=== PATIENT | female | born 1970 | race Two or more races ===

== ENCOUNTER 2023-06-20 22:42 | Inpatient (IN) | payer BC, OTHER ==
[~2023-06-20] VITALS: Ht 162.6 cm; Wt 124.6 kg
[2023-06-20] MEDS ORDERED: SODIUM CHLORIDE 0.9% 1,000 ML IV ONE (23:00)
[2023-06-20] MEDS ORDERED: METOCLOPRAMIDE HCL 5MG/ml INJ 2ml VIAL IV ONE (23:00)
[2023-06-20] MEDS ORDERED: MORPHINE SULFATE 4 MG/ML SYR/VIAL IV ONE (23:00)
[2023-06-20] MEDS ORDERED: PIPERACILLIN-TAZOB 3.375GM 100 ML IV ONE (23:45)
[2023-06-21] VITALS (8 sets, daily range): BP systolic 103–148; BP diastolic 67–78; PULSE 78–98; RESP 16–19; TEMP 96.8–98.6; O2SAT 94–99
[2023-06-21] MEDS ORDERED: ACETAMINOPHEN 325 MG TAB PO PRN
[2023-06-21] MEDS ORDERED: HYDROcodone-ACET 5/325MG TAB PO PRN
[2023-06-21 06:17] LABS: Urine Bacteria NONE SEEN /hpf (None Seen); Urine Blood Negative /uL (Negative); Urine Clarity Clear (Clear); Urine Color Yellow (Yellow); Urine Mucus FEW (None Seen); Urine Protein, UAD Negative (Negative); Urine Specific Gravity 1.019 (1.001-1.035); Urine Urobilinogen Normal (Negative); Urine WBC 1 /hpf (0 - 5)
[2023-06-21] MEDS: metroNIDAZOLE 500MG/100ML 100 ML IV SCH ×3 (06:32→21:45)
[2023-06-21] MEDS: levoFLOXacin 500MG 100 ML IV SCH (09:04)
[2023-06-21] MEDS: SODIUM CHLORIDE 0.9% 1,000 ML IV SCH ×3 (09:04→20:00)
[2023-06-21] MEDS: ONDANSETRON HCL 4 MG/2 ML VIAL IV PRN ×3 (09:04→20:04)
[2023-06-21 10:21] LABS: Basophils # (auto) 0.1 10 ^3/uL (0-0.2); Basophils % (auto) 1.3 % (0.0-2.0); Eosinophils # (auto) 0.2 10 ^3/uL (0-0.8); Eosinophils % (auto) 3.5 % (0.0-7.0); Hemoglobin 12.6 g/dL (12.2-16.2); Lymphocytes # (auto) 1.8 10 ^3/uL (0.4-5.4); Lymphocytes % (auto) 30.7 % (10.0-50.0); Mean Corpuscular Hemoglobin 31.7 pg (28.0-32.0); Mean Corpuscular Hgb Conc. 33.2 g/dL (32.0-36.0); Mean Corpuscular Volume 95.6 fL (80.0-100.0); Monocytes # (auto) 0.4 10 ^3/uL (0-1.3); Monocytes % (auto) 7.1 % (0.0-12.0); Neutrophils # (auto) 3.3 10 ^3/uL (1.6-8.6); Neutrophils % (auto) 57.4 % (37.0-80.0); Red Blood Cells 3.98 10^6/uL (4.0-5.20); Red Cell Distribution Width 12.6 % (11.8-14.3); White Blood Cell 5.7 10^3/uL (4.4-10.8)
[2023-06-21 10:45] LABS: Anion Gap 4 (5-15); Carbon Dioxide 25 mmol/L (20-30); Chloride 109 mmol/L (98-107); Potassium 3.7 mmol/L (3.5-5.1); Sodium 138 mmol/L (136-145)
[2023-06-21 10:46] LABS: Calcium 8.8 mg/dL (8.5-10.1)
[2023-06-21 10:51] LABS: BUN/Creatinine Ratio 14.6 (10.0-20.0); Blood Urea Nitrogen 7 mg/dL (9-23); Glucose 95 mg/dL (74-106)
[2023-06-21] MEDS: MORPHINE SULFATE INJ 2 MG/ml SYRG IV PRN ×2 (11:30→20:04)
[2023-06-22] MEDS: PROMETHAZINE HCL 25 MG/ML 1ML IV PRN ×5 (00:27→22:36)
[2023-06-22] MEDS: MORPHINE SULFATE INJ 2 MG/ml SYRG IV PRN ×5 (00:29→22:37)
[2023-06-22] MEDS: metroNIDAZOLE 500MG/100ML 100 ML IV SCH ×3 (05:25→22:37)
[2023-06-22] MEDS: SODIUM CHLORIDE 0.9% 1,000 ML IV SCH ×3 (05:27→22:44)
[2023-06-22 08:00] VITALS: PULSE 96
[2023-06-22 09:00] VITALS: BP 114/71; PULSE 94; RESP 16; TEMP 98; O2SAT 93
[2023-06-22] MEDS: levoFLOXacin 500MG 100 ML IV SCH (09:27)
[2023-06-22 13:00] VITALS: BP 107/74; PULSE 77; RESP 20; TEMP 98.3; O2SAT 95
[2023-06-22 14:00] LABS: Basophils # (auto) 0.1 10 ^3/uL (0-0.2); Basophils % (auto) 1.7 % (0.0-2.0); Eosinophils # (auto) 0.2 10 ^3/uL (0-0.8); Eosinophils % (auto) 3.2 % (0.0-7.0); Hematocrit 39.9 % (36.0-46.0); Hemoglobin 13.6 g/dL (12.2-16.2); Lymphocytes % (auto) 34.4 % (10.0-50.0); Mean Corpuscular Hemoglobin 32.1 pg (28.0-32.0); Mean Corpuscular Volume 94.4 fL (80.0-100.0); Monocytes # (auto) 0.5 10 ^3/uL (0-1.3); Monocytes % (auto) 8.7 % (0.0-12.0); Nucleated Red Blood Cells % 0.2 %; Red Blood Cells 4.23 10^6/uL (4.0-5.20); Red Cell Distribution Width 12.3 % (11.8-14.3); White Blood Cell 5.7 10^3/uL (4.4-10.8)
[2023-06-22 14:11] LABS: Chloride 105 mmol/L (98-107); Potassium 3.4 mmol/L (3.5-5.1); Sodium 139 mmol/L (136-145)
[2023-06-22 14:12] LABS: Anion Gap 8 (5-15); Calcium 9.2 mg/dL (8.5-10.1); Carbon Dioxide 26 mmol/L (20-30)
[2023-06-22 14:17] LABS: BUN/Creatinine Ratio 12.5 (10.0-20.0); Blood Urea Nitrogen 7 mg/dL (9-23); Glucose 72 mg/dL (74-106)
[2023-06-22 17:00] VITALS: BP 113/75; PULSE 83; RESP 18; TEMP 97.8; O2SAT 97
[2023-06-22] MEDS ORDERED: POTASSIUM CHL 20MEQ/100ML 100 ML IV ONE (17:00)
[2023-06-22 20:00] VITALS: PULSE 86; PULSE 92; RESP 17
[2023-06-22 23:52] VITALS: BP 111/69; PULSE 86; RESP 17; TEMP 98.1; O2SAT 94
[2023-06-23] VITALS (7 sets, daily range): BP systolic 91–111; BP diastolic 53–78; PULSE 61–86; RESP 14–20; TEMP 97.5–98; O2SAT 94–97
[2023-06-23] MEDS: PROMETHAZINE HCL 25 MG/ML 1ML IV PRN ×4 (05:17→21:19)
[2023-06-23] MEDS: MORPHINE SULFATE INJ 2 MG/ml SYRG IV PRN ×4 (05:19→21:41)
[2023-06-23] MEDS: metroNIDAZOLE 500MG/100ML 100 ML IV SCH ×3 (05:25→21:18)
[2023-06-23 07:12] LABS: Anion Gap 13 (5-15); Carbon Dioxide 21 mmol/L (20-30); Chloride 106 mmol/L (98-107); Potassium 3.8 mmol/L (3.5-5.1); Sodium 140 mmol/L (136-145)
[2023-06-23 07:13] LABS: Calcium 8.8 mg/dL (8.7-10.4)
[2023-06-23 07:18] LABS: BUN/Creatinine Ratio 24.6 (10.0-20.0); Blood Urea Nitrogen 14 mg/dL (9-23)
[2023-06-23 07:37] LABS: Glucose 49 mg/dL (74-106)
[2023-06-23 07:44] LABS: Basophils # (auto) 0.1 10 ^3/uL (0-0.2); Eosinophils # (auto) 0.1 10 ^3/uL (0-0.8); Eosinophils % (auto) 1.3 % (0.0-7.0); Hematocrit 43.4 % (36.0-46.0); Hemoglobin 14.4 g/dL (12.2-16.2); Lymphocytes # (auto) 1.6 10 ^3/uL (0.4-5.4); Lymphocytes % (auto) 18.1 % (10.0-50.0); Mean Corpuscular Hemoglobin 31.2 pg (28.0-32.0); Mean Corpuscular Hgb Conc. 33.1 g/dL (32.0-36.0); Mean Corpuscular Volume 94.2 fL (80.0-100.0); Monocytes # (auto) 0.3 10 ^3/uL (0-1.3); Monocytes % (auto) 3.9 % (0.0-12.0); Neutrophils # (auto) 6.6 10 ^3/uL (1.6-8.6); Neutrophils % (auto) 75.7 % (37.0-80.0); Nucleated Red Blood Cells % 0.1 %; Red Blood Cells 4.61 10^6/uL (4.0-5.20); Red Cell Distribution Width 12.4 % (11.8-14.3); White Blood Cell 8.7 10^3/uL (4.4-10.8)
[2023-06-23] MEDS ORDERED: DEXTROSE 10% 250 ML IV ONE (07:56)
[2023-06-23] MEDS: levoFLOXacin 500MG 100 ML IV SCH (10:07)
[2023-06-23] MEDS: D5W/SOD CHL 0.45% 1,000 ML IV SCH ×2 (10:10→18:44)
[2023-06-24] VITALS (10 sets, daily range): BP systolic 92–119; BP diastolic 58–78; PULSE 63–150; RESP 16–18; TEMP 97.8–98.4; O2SAT 92–96
[2023-06-24] MEDS: D5W/SOD CHL 0.45% 1,000 ML IV SCH ×3 (04:45→21:39)
[2023-06-24] MEDS: metroNIDAZOLE 500MG/100ML 100 ML IV SCH ×3 (05:43→21:28)
[2023-06-24] MEDS: PROMETHAZINE HCL 25 MG/ML 1ML IV PRN ×3 (05:44→18:20)
[2023-06-24] MEDS: MORPHINE SULFATE INJ 2 MG/ml SYRG IV PRN ×3 (05:45→18:23)
[2023-06-24 06:48] LABS: Basophils # (auto) 0.1 10 ^3/uL (0-0.2); Basophils % (auto) 1.2 % (0.0-2.0); Eosinophils # (auto) 0.2 10 ^3/uL (0-0.8); Hematocrit 43.1 % (36.0-46.0); Hemoglobin 14.3 g/dL (12.2-16.2); Lymphocytes # (auto) 1.6 10 ^3/uL (0.4-5.4); Lymphocytes % (auto) 26.1 % (10.0-50.0); Mean Corpuscular Hemoglobin 31.4 pg (28.0-32.0); Mean Corpuscular Hgb Conc. 33.1 g/dL (32.0-36.0); Mean Corpuscular Volume 94.7 fL (80.0-100.0); Monocytes # (auto) 0.4 10 ^3/uL (0-1.3); Monocytes % (auto) 6.9 % (0.0-12.0); Neutrophils # (auto) 3.9 10 ^3/uL (1.6-8.6); Neutrophils % (auto) 61.8 % (37.0-80.0); Nucleated Red Blood Cells % 0.2 %; Red Blood Cells 4.55 10^6/uL (4.0-5.20); Red Cell Distribution Width 12.5 % (11.8-14.3); White Blood Cell 6.2 10^3/uL (4.4-10.8)
[2023-06-24 06:58] LABS: Chloride 106 mmol/L (98-107); Potassium 3.7 mmol/L (3.5-5.1); Sodium 140 mmol/L (136-145)
[2023-06-24 06:59] LABS: Anion Gap 7 (5-15); Carbon Dioxide 27 mmol/L (20-30)
[2023-06-24 07:00] LABS: Calcium 8.9 mg/dL (8.7-10.4)
[2023-06-24 07:04] LABS: Glucose 78 mg/dL (74-106)
[2023-06-24 07:05] LABS: BUN/Creatinine Ratio 9.8 (10.0-20.0); Blood Urea Nitrogen < 5 mg/dL (9-23)
[2023-06-24] MEDS: levoFLOXacin 500MG 100 ML IV SCH (11:41)
[2023-06-25] MEDS: MORPHINE SULFATE INJ 2 MG/ml SYRG IV PRN (01:57)
[2023-06-25] MEDS: PROMETHAZINE HCL 25 MG/ML 1ML IV PRN (01:58)
[2023-06-25 05:57] VITALS: BP 106/71; PULSE 83; RESP 18; TEMP 97.9; O2SAT 97
[2023-06-25] MEDS: metroNIDAZOLE 500MG/100ML 100 ML IV SCH (06:13)
[2023-06-25 06:56] LABS: Basophils # (auto) 0.1 10 ^3/uL (0-0.2); Basophils % (auto) 0.9 % (0.0-2.0); Eosinophils # (auto) 0.3 10 ^3/uL (0-0.8); Eosinophils % (auto) 4.1 % (0.0-7.0); Hematocrit 41.8 % (36.0-46.0); Hemoglobin 14.2 g/dL (12.2-16.2); Lymphocytes # (auto) 1.8 10 ^3/uL (0.4-5.4); Lymphocytes % (auto) 29.8 % (10.0-50.0); Mean Corpuscular Hemoglobin 31.8 pg (28.0-32.0); Mean Corpuscular Hgb Conc. 33.9 g/dL (32.0-36.0); Mean Corpuscular Volume 93.9 fL (80.0-100.0); Monocytes # (auto) 0.4 10 ^3/uL (0-1.3); Monocytes % (auto) 6.9 % (0.0-12.0); Neutrophils # (auto) 3.6 10 ^3/uL (1.6-8.6); Neutrophils % (auto) 58.3 % (37.0-80.0); Red Blood Cells 4.45 10^6/uL (4.0-5.20); Red Cell Distribution Width 12.3 % (11.8-14.3); White Blood Cell 6.1 10^3/uL (4.4-10.8)
[2023-06-25 07:05] LABS: Anion Gap 6 (5-15); Calcium 8.9 mg/dL (8.7-10.4); Carbon Dioxide 29 mmol/L (20-30); Chloride 106 mmol/L (98-107); Potassium 3.6 mmol/L (3.5-5.1); Sodium 141 mmol/L (136-145)
[2023-06-25 07:11] LABS: BUN/Creatinine Ratio 11.9 (10.0-20.0); Blood Urea Nitrogen 7 mg/dL (9-23); Glucose 114 mg/dL (74-106)
[2023-06-25 08:00] VITALS: BP 100/64; PULSE 78; PULSE 85; RESP 16; TEMP 97.6; O2SAT 97
[2023-06-25] MEDS: D5W/SOD CHL 0.45% 1,000 ML IV SCH (08:07)
[2023-06-25] MEDS ORDERED: METR-344 PO (09:16)
[2023-06-25] MEDS ORDERED: LEVO500T91 PO (09:16)
[2023-06-25] MEDS: levoFLOXacin 500MG 100 ML IV SCH (09:22)
[2023-06-25 10:51] VITALS: BP 100/64; PULSE 85; RESP 16; TEMP 97.6; O2SAT 97
[2023-06-25] MEDS ORDERED: SODIUM CHLORIDE 0.9% 1,000 ML IV ONE (11:15)
== END 2023-06-25 13:54 | disposition home health service (06) | DRG 392 ==
LOC: ER 22:42 → EDBD 22:42 → TELE 23:52 → TELE-CENTR 06-21 08:20
PROVIDERS: ADMIT Internal Medicine; ATTEND Internal Medicine
DX: K57.32 Diverticulitis of large intestine without perforation or abscess without bleeding (principal); N39.3 Stress incontinence (female) (male); Z90.49 Acquired absence of other specified parts of digestive tract; R33.9 Retention of urine, unspecified
CPT/HCPCS: 36415; 74176; 80048; 81001; 82962; 85025; 87081; G0378; J1956; J2405; J2543; J3480; J3490